=== PATIENT | female | born 1995 | race Caucasian/White ===

== ENCOUNTER 2023-02-02 19:50 | Inpatient (IN) | payer OTHER ==
[~2023-02-02] VITALS: Ht 167.6 cm; Wt 50.3 kg
[2023-02-02] MEDS ORDERED: SODIUM CHLORIDE 0.9% 1,000 ML IV ONE (22:15)
[2023-02-02 23:13] LABS: AMPHET/METH SCREEN,URINE NEGATIVE (NEGATIVE); BARBITURATE SCREEN, URINE NEGATIVE (NEGATIVE); BENZODIAZEPINES SCREEN,URINE POSITIVE (NEGATIVE); CANNABINOID SCREEN,URINE POSITIVE (NEGATIVE); COCAINE SCREEN,URINE NEGATIVE (NEGATIVE); METHADONE SCREEN, URINE NEGATIVE (NEGATIVE); OPIATE SCREEN,URINE NEGATIVE (NEGATIVE); PHENCYCLIDINE SCREEN,URINE NEGATIVE (NEGATIVE)
[2023-02-02 23:16] LABS: EOSINOPHILS % (AUTO) 1.8 % (1.0-6.0); HEMATOCRIT 38.5 % (36-46); HEMOGLOBIN 12.7 g/dL (12.0-16.0); LYMPHOCYTES # (AUTO) 2.3 K/uL (1.0-4.8); LYMPHOCYTES % (AUTO) 35.9 % (22.0-44.0); MEAN CORPUSCULAR HEMOGLOBIN 31.3 pg (26.0-34.0); MEAN CORPUSCULAR HGB CONC 32.9 G/dL (31.0-37.0); MEAN CORPUSCULAR VOLUME 95 fL (80-100); MONOCYTES # (AUTO) 0.4 K/uL (0.1-1.0); MONOCYTES % (AUTO) 5.7 % (2.0-9.0); NEUTROPHILS # (AUTO) 3.5 K/uL (1.8-7.7); NEUTROPHILS % (AUTO) 55.6 % (40.0-70.0); PLATELET COUNT (AUTO) 257 K/uL (150-450); RED BLOOD CELL COUNT(AUTO) 4.04 MIL/uL (4.00-5.20)
[2023-02-02 23:25] LABS: COVID AG,FIA SOURCE NASAL SWAB
[2023-02-02 23:30] LABS: ALANINE AMINOTRANSFERASE 20 U/L (12-78); ALBUMIN 3.6 g/dL (3.4-5.0); ALKALINE PHOSPHATASE 62 U/L (46-116); ANION GAP 15 mmol/L (8-16); ASPARTATE AMINOTRANSFERASE 28 U/L (15-37); BILIRUBIN,TOTAL 0.7 mg/dL (0.1-1.0); CALCIUM, TOTAL 8.3 mg/dL (8.8-10.5); CARBON DIOXIDE 27 mmol/L (22-29); CHLORIDE 100 mmol/L (98-107); CREATININE 0.59 mg/dL (0.60-1.30); GLOMERULAR FILTR. RATE CALC > 60 mL/min (>60); GLUCOSE,RANDOM 101 mg/dL (70-110); SODIUM SERUM 142 mmol/L (136-145)
[2023-02-02 23:33] LABS: POTASSIUM 2.9 mmol/L (3.5-5.1)
[2023-02-02] MEDS: POTASSIUM CHL 10 MEQ/WATER 50 ML IV SCH (23:51)
[2023-02-03] VITALS (9 sets, daily range): BP systolic 122–162; BP diastolic 74–104
[2023-02-03] MEDS: POTASSIUM CHL 10 MEQ/WATER 50 ML IV SCH (00:42)
[2023-02-03 02:38] LABS: POTASSIUM 3.3 mmol/L (3.5-5.1)
[2023-02-03] MEDS ORDERED: ZOLPIDEM TARTRATE 10 MG TABLET PO PRN (04:30)
[2023-02-03] MEDS: LORazepam 2 MG TABLET PO PRN ×3 (05:38→15:41)
[2023-02-03 08:13] LABS: HEMOGLOBIN A1C 4.9 % (3.8-5.6)
[2023-02-03 08:25] LABS: CHOLESTEROL 164 mg/dL (131-200); FREE T4 (FREE THYROXINE) 0.79 ng/dL (0.76-1.46); HDL CHOLESTEROL 83 mg/dL (40-60); POTASSIUM 3.6 mmol/L (3.5-5.1); THYROID STIMULATING HORMONE 2.28 uIU/mL (0.36-3.74); TRIGLYCERIDES 686 mg/dL (15-150)
[2023-02-03] MEDS ORDERED: CloNIDine HCL 0.1 MG TABLET PO PRN (09:30)
[2023-02-03] MEDS ORDERED: TRAZ150T79 PO (11:43)
[2023-02-03] MEDS ORDERED: FLUO20CA36 PO (11:43)
[2023-02-03] MEDS ORDERED: NORE1PAT10 TP (11:51)
[2023-02-03] MEDS: FLUoxetine HCL 20 MG CAPSULE PO SCH (12:08)
[2023-02-03] MEDS: HALOPERIDOL 5 MG TABLET PO PRN (12:58)
[2023-02-03] MEDS ORDERED: TraZODone HCL 150 MG TABLET PO SCH (21:00)
[2023-02-04 01:00] VITALS: BP 134/72
[2023-02-04 04:00] VITALS: BP 122/78
[2023-02-04 06:20] VITALS: BP 122/78
[2023-02-04 08:20] VITALS: BP 149/92
[2023-02-04] MEDS: LORazepam 2 MG TABLET PO PRN (08:24)
[2023-02-04] MEDS: FLUoxetine HCL 20 MG CAPSULE PO SCH (08:24)
[2023-02-04] MEDS ORDERED: TRAZ-283 PO (09:23)
[2023-02-04] MEDS ORDERED: FLUO20CA36 PO (09:23)
[2023-02-04] MEDS: HALOPERIDOL 5 MG TABLET PO PRN (10:03)
== END 2023-02-04 11:45 | disposition home or self-care (01) | DRG 885 ==
LOC: EMS 19:51 → EDSEX 19:51 → B3A 02-03 03:38
PROVIDERS: ADMIT Psychiatry & Neurology Psychiatry; ATTEND Psychiatry & Neurology Psychiatry
DX: F33.2 Major depressive disorder, recurrent severe without psychotic features (principal); T42.4X2A Poisoning by benzodiazepines, intentional self-harm, initial encounter; R45.851 Suicidal ideations; G47.00 Insomnia, unspecified; E78.5 Hyperlipidemia, unspecified; E87.6 Hypokalemia; F41.9 Anxiety disorder, unspecified; Z20.822 Contact with and (suspected) exposure to COVID-19; F10.10 Alcohol abuse, uncomplicated; R03.0 Elevated blood-pressure reading, without diagnosis of hypertension; F12.10 Cannabis abuse, uncomplicated; Y90.7 Blood alcohol level of 200-239 mg/100 ml; Z65.3 Problems related to other legal circumstances; Y92.89 Other specified places as the place of occurrence of the external cause; Z79.899 Other long term (current) drug therapy
CPT/HCPCS: 80053; 80061; 80307; 83036; 84132; 84439; 84443; 84703; 85025; 99285; G0480; J3480; J7030